=== PATIENT | female | born 1940 | race Native Hawaiian/Other Pacific Islander ===

== ENCOUNTER 2016-07-25 14:31 | Outpatient (CLI) | payer OTHER ==
[2016-07-25 15:05] LABS: POTASSIUM 4.1 mmol/L (3.6-5.2); SODIUM 129 mmol/L (136-145)
== END 2016-07-25 19:35 | disposition home or self-care (01) ==
LOC: LABW 14:31
PROVIDERS: Internal Medicine Cardiovascular Disease
DX: Z79.899 Other long term (current) drug therapy (principal); R06.02 Shortness of breath; Z51.81 Encounter for therapeutic drug level monitoring
CPT/HCPCS: 36415; 80048; 83880

== ENCOUNTER 2017-02-11 08:38 | Outpatient (CLI) | payer OTHER | END 2017-02-11 19:19 | disposition home or self-care (01) | LOC: US 08:38 | DX: R11.2 Nausea with vomiting, unspecified (principal) ==

== ENCOUNTER 2017-02-26 12:53 | Outpatient (CLI) | payer OTHER | END 2017-02-26 19:03 | disposition home or self-care (01) | LOC: NM 12:53 | DX: R11.2 Nausea with vomiting, unspecified (principal) | CPT/HCPCS: A9537 ==

== ENCOUNTER 2017-04-15 09:43 | Outpatient (CLI) | payer OTHER | END 2017-04-15 18:58 | disposition home or self-care (01) | LOC: MAMMO 09:43 | DX: Z12.31 Encounter for screening mammogram for malignant neoplasm of breast (principal) ==

== ENCOUNTER 2017-10-29 11:13 | Outpatient (CLI) | payer OTHER | END 2017-10-29 22:30 | disposition home or self-care (01) | LOC: RAD 11:13 | DX: M47.896 Other spondylosis, lumbar region (principal) ==

== ENCOUNTER 2018-01-20 11:47 | Outpatient (CLI) | payer OTHER | END 2018-01-20 23:04 | disposition home or self-care (01) | LOC: RAD 11:47 | DX: M06.4 Inflammatory polyarthropathy (principal); M19.041 Primary osteoarthritis, right hand; M19.042 Primary osteoarthritis, left hand ==

== ENCOUNTER 2018-01-21 09:25 | Outpatient (CLI) | payer OTHER ==
[2018-01-21 09:41] LABS: PLATELET COUNT 199 K/uL (152-353)
== END 2018-01-21 23:45 | disposition home or self-care (01) ==
LOC: LABW 09:25
PROVIDERS: Nurse Practitioner Family
DX: B35.1 Tinea unguium (principal)
CPT/HCPCS: 36415; 85027

== ENCOUNTER 2018-01-27 10:13 | Outpatient (CLI) | payer OTHER ==
[2018-01-27 10:45] LABS: PLATELET COUNT 190 K/uL (152-353)
[2018-01-27 11:07] LABS: POTASSIUM 4.4 mmol/L (3.6-5.2)
== END 2018-01-27 20:25 | disposition home or self-care (01) ==
LOC: LABW 10:13
PROVIDERS: Nurse Practitioner Family
DX: B35.1 Tinea unguium (principal)
CPT/HCPCS: 36415; 80053; 85027

== ENCOUNTER 2018-03-04 09:12 | Outpatient (CLI) | payer OTHER ==
[2018-03-04 09:46] LABS: PLATELET COUNT 186 K/uL (152-353)
[2018-03-04 10:20] LABS: POTASSIUM 4.1 mmol/L (3.6-5.2)
== END 2018-03-04 23:47 | disposition home or self-care (01) ==
LOC: LABW 09:12
PROVIDERS: Nurse Practitioner Family
DX: B35.1 Tinea unguium (principal)
CPT/HCPCS: 36415; 80053; 85027

== ENCOUNTER 2018-04-16 10:56 | Outpatient (CLI) | payer OTHER | END 2018-04-16 18:52 | disposition home or self-care (01) | LOC: MAMMO 10:56 | DX: Z12.31 Encounter for screening mammogram for malignant neoplasm of breast (principal) ==

== ENCOUNTER 2018-04-18 14:42 | Emergency (ER) | payer OTHER ==
[~2018-04-18] VITALS: Ht 157.5 cm; Wt 62.1 kg
[2018-04-18 14:52] VITALS: TEMP 97.3
[2018-04-18 15:40] VITALS: BP 133/74
== END 2018-04-18 15:40 | disposition home or self-care (01) ==
LOC: ED 14:42
DX: T81.49XA Infection following a procedure, other surgical site, initial encounter (principal); L03.115 Cellulitis of right lower limb
CPT/HCPCS: 99281

== ENCOUNTER 2018-07-31 10:41 | Outpatient (CLI) | payer OTHER ==
[2018-07-31 11:15] LABS: PLATELET COUNT 222 K/uL (152-353)
[2018-07-31 11:32] LABS: POTASSIUM 4.3 mmol/L (3.6-5.2)
== END 2018-07-31 19:47 | disposition home or self-care (01) ==
LOC: LABW 10:41
PROVIDERS: Nurse Practitioner Family
DX: B65.1 Schistosomiasis due to Schistosoma mansoni [intestinal schistosomiasis] (principal)
CPT/HCPCS: 36415; 80053; 85027

== ENCOUNTER 2018-08-06 09:52 | Outpatient (CLI) | payer OTHER | END 2018-08-06 23:01 | disposition home or self-care (01) | LOC: RAD 09:52 | DX: M81.0 Age-related osteoporosis without current pathological fracture (principal) ==

== ENCOUNTER 2018-08-20 11:15 | Outpatient (CLI) | payer OTHER ==
[2018-08-20 11:59] LABS: POTASSIUM 4.7 mmol/L (3.6-5.2)
[2018-08-20 12:12] LABS: PLATELET COUNT 224 K/uL (152-353)
== END 2018-08-20 23:59 | disposition home or self-care (01) ==
LOC: LABW 11:15
PROVIDERS: Nurse Practitioner Gerontology
DX: E55.9 Vitamin D deficiency, unspecified (principal); M06.4 Inflammatory polyarthropathy; R76.0 Raised antibody titer; Z79.891 Long term (current) use of opiate analgesic
CPT/HCPCS: 36415; 80053; 82306; 85027; 85651; 86140

== ENCOUNTER 2018-09-11 18:12 | Outpatient (CLI) | payer OTHER | END 2018-09-11 20:01 | disposition home or self-care (01) | LOC: LAB 18:12 | DX: N39.0 Urinary tract infection, site not specified (principal) | CPT/HCPCS: 81000; 87088 ==

== ENCOUNTER 2019-02-03 09:13 | Outpatient (CLI) | payer OTHER ==
[~2019-02-03] VITALS: Ht 157.5 cm; Wt 63.5 kg
[2019-02-03 09:32] VITALS: BP 128/54; TEMP 98.2
== END 2019-02-03 23:42 | disposition home or self-care (01) ==
LOC: INF 09:13
DX: M81.0 Age-related osteoporosis without current pathological fracture (principal)
CPT/HCPCS: 36415; 82310; 96372; J0897

== ENCOUNTER 2019-02-09 12:40 | Outpatient (CLI) | payer OTHER | END 2019-02-09 22:53 | disposition home or self-care (01) | LOC: MAMMO 12:40 | DX: N64.4 Mastodynia (principal) ==

== ENCOUNTER 2020-05-06 09:56 | Outpatient (CLI) | payer OTHER | END 2020-05-06 23:56 | disposition home or self-care (01) | LOC: MAMMO 09:56 | DX: Z12.31 Encounter for screening mammogram for malignant neoplasm of breast (principal); M06.8A Other specified rheumatoid arthritis, other specified site; M48.00 Spinal stenosis, site unspecified; N95.8 Other specified menopausal and perimenopausal disorders; Z13.820 Encounter for screening for osteoporosis ==

== ENCOUNTER 2021-01-24 11:29 | Outpatient (CLI) | payer OTHER ==
[~2021-01-24] VITALS: Ht 157.5 cm; Wt 64.9 kg
[2021-01-24 11:38] VITALS: BP 138/57; TEMP 97.6
== END 2021-01-24 21:36 | disposition home or self-care (01) ==
LOC: INF 11:29
PROVIDERS: ATTEND Internal Medicine
DX: M81.0 Age-related osteoporosis without current pathological fracture (principal)
CPT/HCPCS: 36415; 82310; 96372; J0897

== ENCOUNTER 2021-05-08 08:52 | Outpatient (CLI) | payer OTHER | END 2021-05-08 19:21 | disposition home or self-care (01) | LOC: MAMMO 08:52 | PROVIDERS: ATTEND Internal Medicine | DX: Z12.31 Encounter for screening mammogram for malignant neoplasm of breast (principal) ==

== ENCOUNTER 2021-11-16 10:45 | Outpatient (CLI) | payer OTHER | END 2021-11-16 19:03 | disposition home or self-care (01) | LOC: LABW 10:45 | PROVIDERS: ATTEND Podiatrist | DX: B35.1 Tinea unguium (principal) | CPT/HCPCS: 36415; 84450; 84460 ==

== ENCOUNTER 2021-12-20 11:27 | Outpatient (CLI) | payer OTHER | END 2021-12-20 19:12 | disposition home or self-care (01) | LOC: LABW 11:27 | PROVIDERS: ATTEND Podiatrist | DX: B35.1 Tinea unguium (principal) | CPT/HCPCS: 36415; 84450; 84460 ==

== ENCOUNTER 2022-02-01 11:07 | Outpatient (CLI) | payer OTHER | END 2022-02-01 22:25 | disposition home or self-care (01) | LOC: LABW 11:07 | PROVIDERS: ATTEND Podiatrist | DX: B35.1 Tinea unguium (principal) | CPT/HCPCS: 36415; 84450; 84460 ==

== ENCOUNTER 2022-03-01 12:56 | Outpatient (CLI) | payer OTHER ==
[~2022-03-01] VITALS: Ht 149.9 cm; Wt 62.6 kg
[2022-03-01 13:40] VITALS: BP 139/73; TEMP 98.8
[2022-03-01 14:35] VITALS: BP 128/66; TEMP 98.5
== END 2022-03-01 23:00 | disposition home or self-care (01) ==
LOC: RAD 12:56 → INF 12:56 → RAD 13:00 → INF 23:00
PROVIDERS: ATTEND Internal Medicine
DX: M81.0 Age-related osteoporosis without current pathological fracture (principal)
CPT/HCPCS: 36415; 82310; 96372; J0897